=== PATIENT | male | born 1980 | race African-American/Black ===

== ENCOUNTER → 2023-11-22 07:52 | Day surgery (SDC) | payer OTHER, SELFPAY ==
--- NOTE | 2023-11-22 07:25 | HPS.HSE ---
Family Physician
-
Family Physician: NOT KNOW UNKNOWN - PT DOES
Chief Complaint
-
Atypical atrial flutter.
History of Present Illness
The patient is a 43 year old male presenting today for atypical atrial flutter. He describes 'on and off' dyspnea and palpitations over the last 2 years likely secondary to this diagnosis. Per his , he previously underwent a
cardioversion for his atrial flutter in June 2023. He is currently rate controlled without the use of pharmacological therapy. He has been compliant with Eliquis fo oral anticoagulation. He notes that his symptoms associated with his arrhythmia
are greatly interfering with his activities of daily living and are overall impacting his quality of life. He is interested in pursuing an atrial flutter ablation for further arrhythmia management. Prior to undergoing this procedure, he will proceed
with a transesophageal echocardiogram first. He denies any new complaints today such as chest pain, shortness of breath at rest, nausea, vomiting, diarrhea, lightheadedness, dizziness, cough, sore throat, or fever.
Medical History
Past Medical History
Past Medical History: Reports Other
Additional Past Medical History:
1. Atypical atrial flutter, status post cardioversion 06/2023; oral anticoagulation with Eliquis.
2. Left atrial appendage thrombus on echocardiogram 2022; no thrombus visualized on repeat echocardiogram 06/2023.
3. Cardiomyopathy, mildly reduced ejection fraction.
4. Mild-moderate mitral regurgitation.
Past Surgical History: Reports Cardiac (Cardioversion. )
Social History
Tobacco: Non-smoker
Alcohol: Occasional
Personal:
Living: Other (He lives with his in a 2 story home. )
Family History
Family History: Not pertinent
Allergies / Home Medications
Allergy/Medication List:
Home medications: Eliquis 5 mg p.o. twice a day.
Allergies: No known allergies.
Review of Systems
-
A 12 point ROS was completed and negative except as noted: Yes
Physical Exam
Vital Signs
Blood pressure 132/94. Heart rate 58. Respirations 18. Pulse ox 100% on room air.
Physical Exam
General: Well Developed, Well Nourished and No Apparent Distress
HEENT: NormoCephalic, Moist mucous membranes, Atraumatic and PERRLA
Respiratory: Clear
Cardiac: Irregular Rhythm
GI: Soft, Non Tender and Non Distended
Musculoskeletal: No Edema and Normal Gait & Station
Skin: Warm and Dry
Neuro: AO x 3 and Nonfocal/grossly intact
Laboratory Results
-
Transesophageal echocardiogram 06/21/2023: Left ventricular ejection fraction is 40-45%. Mildly dilated left atrium. Mild-moderate mitral regurgitation. Global cardiomyopathy.
Labs and EKG for ablation pending at time of signing off on H&P. They will be reviewed prior to undergoing that procedure.
Impression/Plan
-
IMPRESSION/PLAN:
1. Atypical atrial flutter: The patient is in need of an atrial flutter ablation with Dr. Rolan Reis on 11/23/2023. Prior to undergoing this procedure, however, he will undergo a transesophageal echocardiogram today, 11/22/2023, with Dr. Dumont
Linda to officially rule out a left atrial appendage thrombus. The benefits and risks of the procedure have been explained to the patient. The patient understands these risks and wishes to proceed.
[2023-11-22 08:43] LABS: % Basophils 0.3 % (0-2); % Eosinophils 7.8 % (0-6); % Immature Granulocytes 0.3 % (0-0.5); % Monocytes 11.5 % (1.7-9.3); % Neutrophils 30.1 % (42.2-75.2); Absolute Eosinophils 0.2 10^3/uL (0-0.7); Absolute Lymphocytes 1.5 10^3/uL (1.2-3.4); Absolute Monocytes 0.3 10^3/uL (0.1-0.6); Hematocrit 43.2 % (39.0-52.0); Hemoglobin 15.1 g/dL (13.0-18.0); Mean Corpuscular Hgb 31.2 pg (27.0-31.0); Mean Corpuscular Volume 89.3 fL (80.0-94.0); Mean Platelet Volume 12.1 fL (7.4-10.4); Nucleated Red Blood Cells % 0 % (-); Platelet Count 132 10^3/uL (130-400); Red Blood Cell Count 4.84 10^6/uL (4.70-6.10); Red Cell Dist. Width 12.4 % (11.5-14.5)
[2023-11-22 08:46] LABS: INR 1.11; PT 14.3 Sec (11.4-14.6)
[2023-11-22 08:48] LABS: ALT (SGPT) 33 U/L (0-50); AST (SGOT) 28 U/L (17-59); Albumin 4.5 g/dl (3.5-5.0); Alkaline Phosphatase 50 U/L (38-126); Blood Urea Nitrogen 15 mg/dl (9-20); Carbon Dioxide 27 mmol/L (22-30); Chloride 105 mmol/L (98-107); Glucose 105 mg/dl (70-99); Magnesium 1.9 mg/dl (1.6-2.3); Potassium 4.2 mmol/L (3.5-5.1); Sodium 140 mmol/L (135-145); Total Bilirubin 1.1 mg/dl (0.2-1.3); Total Protein 7.6 g/dl (6.3-8.2); eGFR > 60.00
[2023-11-22 10:09] LABS: Absolute Neutrophils 0.9 10^3/uL (1.4-6.5)
== END ==
LOC: CATH 07:52
PROVIDERS: ATTENDING PHYSICIAN Internal Medicine Cardiovascular Disease; FAMILY PHYSICIAN Family Medicine; OTHER PHYSICIAN Student in an Organized Health Care Education/Training Program
DX: I08.1 Rheumatic disorders of both mitral and tricuspid valves (principal); I48.4 Atypical atrial flutter; I48.91 Unspecified atrial fibrillation; R06.00 Dyspnea, unspecified; R00.2 Palpitations; I42.9 Cardiomyopathy, unspecified; Z79.01 Long term (current) use of anticoagulants
CPT/HCPCS: 93312; 93320; 93325; 80053; 83735; 85025; 85610; 86850; 86900; 86901; 93005

== ENCOUNTER 2023-11-23 08:26 | Day surgery (SDC) | payer OTHER, SELFPAY ==
[2023-11-22 12:14] VITALS: BMI 26.7
[2023-11-23] VITALS (11 sets, daily range): BP systolic 102–132; BP diastolic 69–106
[2023-11-23] MEDS: NSS 500 IV (09:12)
[2023-11-23] MEDS: TYLENOL 1000 MG PO (10:09)
[2023-11-23 11:54] LABS: ACT-LR - POC 273 Seconds (116-155)
[2023-11-23 12:32] LABS: ACT-LR - POC 260 Seconds (116-155)
[2023-11-23 13:04] LABS: ACT-LR - POC 342 Seconds (116-155)
[2023-11-23 13:21] LABS: ACT-LR - POC 236 Seconds (116-155)
[2023-11-23 13:45] LABS: ACT-LR - POC 298 Seconds (116-155)
--- NOTE | 2023-11-23 14:33 | ITS.CL.ABL ---
[facility] - Ablation
Ablation
Procedure Report:
ELECTROPHYSIOLOGY ABLATION STUDY
�
DATE:: November 23, 2023���������������������������� REFERRING: Dr. Fredi Rosen
�
INDICATION: Persistent supraventricular tachycardia in the form of atypical atrial flutter with a positive P wave throughout the precordium and slightly inferiorly directed suggesting left atrial site of origin.
�
HISTORY: See H and P.� As above
�
ANTIARRHYTHMIC DRUG: No antiarrhythmic drug therapy currently
�
PRE-PROCEDURE OZIEL: Demonstrated LV dysfunction ejection fraction 35 to 40% on OZIEL without interatrial thrombus
�
PRESENTING RHYTHM: Atrial flutter demonstrated to be left atrial posterior wall macro reentry about a small left atrial posterior wall scar
�
'TIME-OUT':� called and confirmed.
�
SEDATION/ANESTHESIA:� provided via the anesthesia department using general anesthesia (LMA).
�
INTRAVENOUS/ARTERIAL ACCESS:
Right femoral venous - 8Fr
Left femoral venous - 8 Fr, 6 Fr
Vascade vascular closure was utilized in both venous access sites for early ambulation and same-day discharge
Ultrasound guidance for bilateral femoral vein access was utilized by me to obtain access with demonstration of normal anatomy
CHADS-VASC Score:
�
HAS-Bled Score
�
PROCEDURE:�
1.� A decapolar CS catheter was placed within the CS for mapping and pacing.� This was also used as the reference catheter for the 3-D map. The patient had 230 ms tachycardia which was atypical. P wave morphology positive throughout the precordium
and positive and 1 slightly positive into and somewhat flattened 3 either suggesting a focal tachycardia from the posterior right atrium or posterior wall outside of the right pulmonary veins or macro reentry. Utilizing multipolar catheter to
earliest activation was at the bottom His bundle and slightly less early at the interatrial fossa and coronary sinus suggesting breakthrough from the left atrium. Focal lesions were given at the earliest right atrial source across from the right
pulmonary vein tiffanie on the right atrial side without slowing or termination. As such we then proceeded to transseptal puncture to assess activation from the left atrium. Entrainment from the earliest activation in the right atrium was
approximately 40 to milliseconds PPI greater than tachycardia cycle length.
�
2. The intracardiac ultrasound catheter was positioned in the RA to identify the FO for targeting of transseptal puncture, assist� in identification of the pulmonary vein ostia, monitoring pre and post ablation pulmonary vein flow velocities,
monitoring for 'bubble' formation during RF application as a sign of thermal injury,� and to monitor for pericardial effusion during mapping and ablation procedure.�� Left atrial size, LV ejection fraction, and pulmonary vein flows were monitored
pre and post ablation procedure. The other valves were inspected and found to be free of significant regurgitation or stenosis. Ejection fraction at baseline was approximately 15 to 20% and after termination of tachycardia approximately 25%.
Please note the OZIEL from yesterday where the ejection fraction was assessed at 35 to 40%.
�
3.� Half of the calculated heparin bolus was administered prior to the first transeptal puncture.� Transseptal puncture was performed to diagnose RA and LA pressure so that safetey of LA mapping and ablation could be further assessed, and to access
the left atrium and pulmonary veins for mapping and ablation.� This entailed advancing an 10 Wallisian steerable with dilator into the superior vena cava and withdrawing both (monitoring intracardiac ultrasound, fluoroscopy and tip pressure) with the
tip oriented toward the atrial septum.� The fossa ovalis was engaged (indicated by sudden displacement of the sheath tip as well as tenting of the fossa seen on intracardiac ultrasound).� Left atrial access required a pass with the [place]
needle extended.� Left atrial catheter position was confirmed by pressure monitoring (RA mean pressure 8 mm Hg and LA mean presure 14 mm Hg), LA saturation (99%),� as well as fluoroscopy.� The sheath was advanced over the dilator and positioned in
the left atrium.� We performed multipolar grid mapping with the Agilis sheath and then upgraded to the 12 Wallisian Contour sheath over a ProTrac wire.� The remainder of the calculated heparin bolus was administered and heparin was
infused to maintain ACT at 300 -350 seconds throughout the case.
�
4.� RA pacing was performed via the proximal decapolar poles and LA pacing was performed via the distal decapolr poles.
�
5. A quadrapolar catheter was first positioned at the His position for His Bundle recording which was tagged via the 3-D Navex sytem, and then passed to the RVA for RV pacing and recording.
�
6. The multipolar grid catheter and PFA catheter placed in each of the LIPV, LSPV, RSPV and the RIPV.��
�
7.� Next, a 3-D map was created using Navex.�� A 3-D reconstructed CT image was compared to the 3-D Navex map to assist in anatomic interpretation, mapping and ablation.� The CT image and the NavX image were fused.
�
8. After we performed transseptal puncture multipolar mapping of the left atrium demonstrated the entire cycle length within the left atrium. There was a focal area of scarring outside the right inferior pulmonary vein and the posterior wall from
the tiffanie down to the floor. Entrainment demonstrated the posterior wall of the left atrium to be in the circuit with PPI equal to tachycardia cycle length with the atrial flutter spinning around this linear scar with excellent entrainment from
the entire posterior wall. 20 to 30 ms PPI greater than tachycardia cycling in pulmonary veins and anterior in the mitral isthmus suggesting passive loop activation of the mitral isthmus and pulmonary veins. This is also consistent with the right
atrial activation and entrainment mapping demonstrating breakthrough near the right pulmonary veins. Once tachycardia mechanism was identified the PFA catheter was brought to the left atrium and a single lesion in the middle of the posterior wall
just leftward to the linear scar terminated tachycardia. The entire posterior wall was then isolated sequentially as well as the pulmonary veins isolated with entrance and exit block in all 4 pulmonary veins plus the posterior wall. Ejection
fraction is slightly improved in sinus rhythm. EPS with stim with burst pacing down to 240 ms as well as atrial extrastimuli at 406 100 ms drivetrain's with singles did not induce any other macro reentry or focal tachycardias. Baseline sinus rate
of approximately 720 ms in sinus rhythm.
�
9. Normal sinus node and AV node function noted
�
TOTAL FLOURO TIME: 30 minutes 123 mGy
�
TOTAL RF DURATION: 1.5 minutes
�
REVERSAL OF HEPARIN: 35 mg of protamine, slow IV administration
�
COMPLICATIONS:�
None
Intracardiac US shows no pericardial effusion post ablation.
�
SUMMARY:��
Complex left atrial mapping and ablation.
Clinical macro reentry in the left atrial posterior wall 230 ms flutter around a small linear scar in the left atrial posterior wall. Unclear mechanism of this electroanatomic scar. Termination with left atrial posterior wall isolation as well as
PVI.
�
RECOMMENDATIONS:
1. Consider same-day discharge
2. Resume anticoagulation
3.� Ambulate in 2 hours
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 We will check basic metabolic panel next week with initiation of lisinopril and
metoprolol.
�
Copy to: Dr. Fredi Burden
�
[2023-11-23] MEDS: TYLENOL 650 MG PO (16:19)
--- NOTE | 2023-11-23 16:52 | W.PN.UPDATE ---
Update Note
Progress Note Update
Pt seen post PFA/Flutter ablation. Bilat groin sites stable, no ht/bleeding. OOB ambulating, urinating without difficulty. Post EKG NSR 70s, no acute changes. Resume eliquis tonight, continue other meds as before. BMP in [address] Reis.
Followup with Dr. Burden as scheduled. Home later today if groin sites/tele remain stable.
== END 2023-11-23 17:15 | disposition home or self-care (01) ==
LOC: CATH 08:26
PROVIDERS: ATTENDING PHYSICIAN Internal Medicine Cardiovascular Disease; FAMILY PHYSICIAN Family Medicine; OTHER PHYSICIAN Student in an Organized Health Care Education/Training Program
DX: I48.4 Atypical atrial flutter (principal); I47.10 Supraventricular tachycardia, unspecified; I42.9 Cardiomyopathy, unspecified; Z79.01 Long term (current) use of anticoagulants
CPT/HCPCS: 93662; C1732; C1730; C1733; C1894; C1766; C2630; C1892; C1759; 76937; 85347; 86900; 86901; 93005; 93462; 93653; C1760; C1769

== ENCOUNTER → 2024-03-11 08:41 | Outpatient (REF) | payer OTHER, SELFPAY | LOC: PAVMRI 08:41 | PROVIDERS: ATTENDING PHYSICIAN Student in an Organized Health Care Education/Training Program; FAMILY PHYSICIAN Family Medicine | DX: I48.3 Typical atrial flutter (principal); I42.8 Other cardiomyopathies; R94.30 Abnormal result of cardiovascular function study, unspecified | CPT/HCPCS: 75561; 75565; A9585 ==